=== PATIENT | female | born 1930 | race Caucasian/White ===

== ENCOUNTER 2019-01-07 16:33 | Emergency (ER) | payer OTHER, MEDICAID ==
[~2019-01-07] VITALS: Ht 170.2 cm; Wt 68.0 kg
--- NOTE | 2019-01-07 16:33 | NUR ---
Placed in room 01 . Placed on exhibition specialist, blood pressure machine and pulse oximeter. To gown for exam. Side rails up. Report given to Krystian LOVING.
--- NOTE | 2019-01-07 16:34 | NUR ---
SONIA Gonzalez at bedside examining patient.
--- NOTE | 2019-01-07 16:35 | NUR ---
Patient is awake, alert, and oriented x4. Her daughter is at bedside. Patient fell 3 days ago, striking her head on the corner of a nightstand. Patient refused to go to the ER at that time. Patient has had a headache since then that has not resolved. Small hematoma noted behind left ear. Patient is also complaining of left leg pain.
[2019-01-07 16:39] VITALS: BP_SYST 203
[2019-01-07] MEDS ORDERED: hydrALAZINE HCL 20 MG/ML VIAL IVP ONE ×2 (16:45→18:45)
[2019-01-07] MEDS ORDERED: NACL 0.9% 1,000 ML IV ONE (16:45)
[2019-01-07] MEDS ORDERED: MORPHINE 4 MG/ML INJ. SYRINGE IVP ONE ×2 (16:45→19:45)
--- NOTE | 2019-01-07 16:58 | NUR ---
X-ray at bedside.
--- NOTE | 2019-01-07 17:02 | NUR ---
Patient transported to radiology via gurney, accompanied by plumbing technician.
[2019-01-07 17:10] LABS: BASOPHILS # (AUTO) 0.1 K/uL (0.0-0.2); EOSINOPHILS # (AUTO) 0.2 K/uL (0.0-0.4); EOSINOPHILS % (AUTO) 2.7 % (0.0-4.0); HEMATOCRIT 38.6 % (36-48); HEMOGLOBIN 12.3 g/dL (12.0-16.0); LYMPHOCYTES # (AUTO) 1.6 K/uL (1.0-5.5); LYMPHOCYTES % (AUTO) 25.1 % (20.5-51.5); MEAN CORPUSCULAR HEMOGLOBIN 29 pg (27-31); MEAN CORPUSCULAR HGB CONC 32 % (32-36); MEAN CORPUSCULAR VOLUME 89 fL (79.0-98.0); MONOCYTES # (AUTO) 0.3 K/uL (0.0-1.0); MONOCYTES % (AUTO) 4.2 % (1.7-9.3); NEUTROPHILS # (AUTO) 4.2 K/uL (1.8-7.7); PLATELET COUNT (AUTO) 226 K/uL (130-430); RED BLOOD CELL COUNT(AUTO) 4.32 MIL/uL (4.2-6.2); WHITE BLOOD COUNT (AUTO) 6.3 K/uL (4.8-10.8)
--- NOTE | 2019-01-07 17:15 | NUR ---
Returned from radiology, back to [facility].
[2019-01-07 17:41] LABS: ANION GAP 10 (5-15); CALCIUM 8.1 mg/dL (8.4-11.0); CHLORIDE 107 mmol/L (98-107); CREATININE 2.96 mg/dL (0.55-1.30); GLUCOSE 354 mg/dL (70-99); POTASSIUM 4.8 mmol/L (3.5-5.1); SODIUM SERUM 140 mmol/L (136-145); UREA NITROGEN, BLOOD 61 mg/dL (8-21)
[2019-01-07 17:42] LABS: CHOLESTEROL 161 mg/dL (<200); HDL CHOLESTEROL 81 mg/dL (>55); LDL CHOLESTEROL 61 mg/dL (<100); TRIGLYCERIDES 138 mg/dL (30-150)
[2019-01-07 17:46] LABS: ALANINE AMINOTRANSFERASE 19 U/L (12-78); ALBUMIN 3.2 g/dL (3.4-4.8); ASPARTATE AMINOTRANSFERASE 20 U/L (10-37); TOTAL BILIRUBIN 0.2 mg/dL (0.0-1.0)
[2019-01-07 17:47] LABS: ACETAMINOPHEN < 1 ug/mL (1-30); ALCOHOL, BLOOD < 3 mg/dL (<10)
[2019-01-07 18:51] LABS: BILIRUBIN,URINE NEGATIVE (NEGATIVE); CLARITY/URINE TURBID (CLEAR); COLOR,URINE YELLOW (YELLOW); GLUCOSE,URINE TRACE (NEGATIVE); KETONES,URINE TRACE (NEGATIVE); LEUKOCYTE ESTERASE ,URINE 3+ (NEGATIVE); NITRITE, URINE NEGATIVE (NEGATIVE); PROTEIN URINE 3+ (NEGATIVE); UROBILINOGEN,URINE 0.2 (0.2-1.0)
[2019-01-07 18:55] LABS: BLOOD, URINE TRACE (NEGATIVE)
[2019-01-07 19:02] LABS: BARBITURATE, URINE NEGATIVE (NEG <=200); BENZODIAZEPINE, URINE NEGATIVE (NEG <=150); CANNABINOID, URINE NEGATIVE (NEG <=50); COCAINE, URINE NEGATIVE (NEG <=150); METHAMPHETAMINES SCREEN,URINE NEGATIVE (NEG <=500); OPIATE, URINE POSITIVE (NEG <=100); PHENCYCLIDINE SCREEN,URINE NEGATIVE (NEG <=25); UR TRICYCLIC ANTIDEPRESSANTS NEGATIVE (NEG <=300); URINE AMPHETAMINE NEGATIVE (NEG <=500); URINE METHADONE NEGATIVE (NEG <=200); URINE OXYCODONE SCREEN NEGATIVE (NEG <=100); URINE PROPOXYPHENE SCREEN NEGATIVE (NEG <=300)
[2019-01-07 19:08] LABS: BACTERIA,URINE MANY /HPF (None Seen); WBC,URINE >100 /HPF (0-3)
--- NOTE | 2019-01-07 19:10 | NUR ---
Report given to INDER Bishop for continuation of care.
[2019-01-07] MEDS ORDERED: cefTRIAXone 1 GM IVPB PREMIX 50 ML IV ONE (19:15)
[2019-01-07] MEDS ORDERED: INSULIN REGULAR, HUMAN 10 UNITS/0.1 ML INJ IVP ONE (19:45)
--- NOTE | 2019-01-07 19:52 | NUR ---
10 units Regular insulin administered IVP. Pt tolerated well. No adverse reactions noted.
[2019-01-07] MEDS ORDERED: MORPHINE 4 MG/ML INJ. SYRINGE ONE (19:56)
--- NOTE | 2019-01-07 19:56 | NUR ---
Patient to be transferred to [facility]. Is being transferred due to continuation of care. Receiving facility has accepting physician and available space. Patient or responsible alliance party has agreed to transfer. Copy of nursing notes, lab reports, EKG, Physicians Orders and X-rays to be sent with patient. Report called to Anali at receiving facility. Receiving physician is [facility] has been called for transfer. ETA is 30mins.
[2019-01-07 20:01] VITALS: BP_SYST 135
== END 2019-01-07 20:01 ==
LOC: SED 16:33
DX: S00.03XA Contusion of scalp, initial encounter (principal); M25.552 Pain in left hip; E11.65 Type 2 diabetes mellitus with hyperglycemia; N39.0 Urinary tract infection, site not specified; I10 Essential (primary) hypertension; W01.198A Fall on same level from slipping, tripping and stumbling with subsequent striking against other object, initial encounter; Y93.89 Activity, other specified; Y92.89 Other specified places as the place of occurrence of the external cause; Y99.8 Other external cause status
CPT/HCPCS: 36415; 70450; 73502; 80053; 80061; 80307; 81000; 82962; 83036; 83605; 85025; 87040; 87086; 87186; 93005; 96361; 96365; 96375; 96376; 99285; G0480; G0481; G0482; J0360; J0696; J1815; J2270; J7030; 87081

== ENCOUNTER 2019-01-11 14:44 | Outpatient (CLI) | payer MEDICAID, OTHER ==
[2019-01-11 16:34] LABS: CHOLESTEROL 144 mg/dL (<200); HDL CHOLESTEROL 78 mg/dL (>55); LDL CHOLESTEROL 54 mg/dL (<100); TRIGLYCERIDES 92 mg/dL (30-150)
== END 2019-01-11 19:27 | disposition home or self-care (01) ==
LOC: SLB 14:44
PROVIDERS: ATTEND Psychiatry & Neurology Psychiatry
DX: F29 Unspecified psychosis not due to a substance or known physiological condition (principal); E11.22 Type 2 diabetes mellitus with diabetic chronic kidney disease; I12.9 Hypertensive chronic kidney disease with stage 1 through stage 4 chronic kidney disease, or unspecified chronic kidney disease; N18.9 Chronic kidney disease, unspecified; I25.10 Atherosclerotic heart disease of native coronary artery without angina pectoris; Z87.440 Personal history of urinary (tract) infections; D64.9 Anemia, unspecified; E03.9 Hypothyroidism, unspecified; E78.5 Hyperlipidemia, unspecified; M19.90 Unspecified osteoarthritis, unspecified site; Z91.81 History of falling; M54.5 Low back pain; G30.9 Alzheimer's disease, unspecified; F02.80 Dementia in other diseases classified elsewhere, unspecified severity, without behavioral disturbance, psychotic disturbance, mood disturbance, and anxiety; R13.10 Dysphagia, unspecified
CPT/HCPCS: 36415; 80061; 83036